=== PATIENT | male | born 1955 | race Caucasian/White ===

== ENCOUNTER 2016-07-16 12:08 | Day surgery (SDC) | payer BC ==
[~2016-07-16] VITALS: Ht 170.2 cm; Wt 118.8 kg
[~2016-07-16 12:08] MED LIST: Astelin, Astepro 0.1 BOTH NARES; CRESTOR20 MG PO; CYMBALTA30 MG PO; Caltrate 600/200 PO; Centrum Silver,Certa PO; Diovan HCT 160/25 PO; ENDOCET 5-3251 EACH PO; Ecotrin PO; Effient PO; ISOSORBIDE DINI30 MG PO; KLOR-CON M2020 MEQ PO; LEVO-T25 MCG PO; LEXAPRO20 MG PO; LITE COAT ASPI325 M1 PO; Lipitor PO; NOVOLIN N100 UNITS/ SC; NOVOLOG PE100 UNITS/ SC; Nitrostat,NitroQuick SL; Singulair PO; TENORMIN50 MG PO; Tenormin PO
[2016-07-16 12:44] VITALS: BP 128/65
[2016-07-16 12:59] LABS: POINT-OF-CARE METER ID UU14174212
[2016-07-16 15:53] LABS: POINT-OF-CARE METER ID UU13113675; POINT-OF-CARE USER ID 515036437
[2016-07-16 16:30] VITALS: BP 169/79
[2016-07-16 17:24] VITALS: BP 123/74
== END 2016-07-16 17:24 | disposition home or self-care (01) ==
LOC: SDC 12:08
PROVIDERS: Podiatrist Foot & Ankle Surgery
PROC: 0MQT0ZZ Repair Left Foot Bursa and Ligament, Open Approach (ICD-10-PCS; principal; 2016-07-16)
DX: M20.12 Hallux valgus (acquired), left foot (principal); E11.9 Type 2 diabetes mellitus without complications; I10 Essential (primary) hypertension; R01.1 Cardiac murmur, unspecified; K21.9 Gastro-esophageal reflux disease without esophagitis; G47.33 Obstructive sleep apnea (adult) (pediatric)
CPT/HCPCS: 82948; C1769; J0690; J1100; J2250; J2405; J3010; S0020

== ENCOUNTER → 2016-12-03 | Outpatient (CLI) | payer BC | END | disposition home or self-care (01) | LOC: AMB 10:52 | DX: L72.0 Epidermal cyst (principal) | CPT/HCPCS: 88304 ==